=== PATIENT | male | born 1940 | race Caucasian/White ===

== ENCOUNTER → 2019-04-07 | Outpatient (CLI) | payer MEDICARE | END | disposition home or self-care (01) | LOC: SHCH 13:20 | PROVIDERS: ATTEND Internal Medicine Cardiovascular Disease | DX: R94.31 Abnormal electrocardiogram [ECG] [EKG] (principal) | CPT/HCPCS: 93306 ==

== ENCOUNTER → 2021-06-15 | Outpatient (CLI) | payer MEDICARE | END | disposition home or self-care (01) | LOC: RAH 08:33 | PROVIDERS: ATTEND Orthopaedic Surgery | DX: M16.12 Unilateral primary osteoarthritis, left hip (principal); N32.89 Other specified disorders of bladder | CPT/HCPCS: 73721 ==

== ENCOUNTER 2022-04-06 08:56 | Emergency (ER) | payer MEDICARE ==
[~2022-04-06] VITALS: Ht 182.9 cm; Wt 103.4 kg
[2022-04-06] MEDS ORDERED: KETOROLAC 15MG/ML VIAL (15MG/ML) IV ONE (09:30)
[2022-04-06] MEDS ORDERED: 0.9%NACL 1000ML 1,000 ML IV ONE (09:30)
[2022-04-06] MEDS ORDERED: FAMOTIDINE 20MG VIAL IV ONE (09:30)
[2022-04-06] MEDS ORDERED: ONDANSETRON 4MG INJ IVP ONE (09:30)
[2022-04-06] MEDS ORDERED: MORPHINE 2 MG SYG IVP ONE (09:30)
[2022-04-06 09:31] LABS: BASOPHILS % (AUTO) 0.1 % (0.0-5.0); HEMATOCRIT 40.9 % (42-54); LYMPHOCYTES % (AUTO) 7.8 % (21.0-51.0); MEAN CORPUSCULAR HEMOGLOBIN 31.8 pg (27.0-33.0); MEAN CORPUSCULAR HGB CONC 34.5 g/dL (32.0-36.0); MEAN CORPUSCULAR VOLUME 92.3 fL (79-99); MONOCYTES % (AUTO) 5.8 % (3.0-13.0); NEUTROPHILS % (AUTO) 85.5 % (40.0-77.0); PLATELET COUNT (AUTO) 198 K/uL (130-400); RED BLOOD CELL COUNT(AUTO) 4.43 MIL/uL (4.50-6.20); RED CELL DISTRIBUTION WIDTH 12.5 % (11.0-15.5); WHITE BLOOD COUNT (AUTO) 15.7 K/uL (4.8-10.8)
[2022-04-06 09:47] LABS: ALBUMIN 4.2 g/dL (3.5-5.0); CREATININE 1.4 mg/dL (0.5-1.5); POTASSIUM 4.4 mmol/L (3.5-5.1); TOTAL PROTEIN, SERUM 7.8 g/dL (6.0-8.3)
[2022-04-06] MEDS ORDERED: IOHEXOL 350 MG/ML 100ML INFUS..BTL IV ONE (09:51)
[2022-04-06] MEDS ORDERED: METRONIDAZOLE 500 MG TABLET PO SCH (11:30)
[2022-04-06] MEDS ORDERED: LACT1CAP81 PO (11:33)
[2022-04-06] MEDS ORDERED: FAMO-136 PO (11:33)
[2022-04-06] MEDS ORDERED: METR375C2 PO (11:33)
[2022-04-06 12:17] VITALS: BP 169/75
[2022-04-11] MEDS ORDERED: FAMO20TA8 PO (23:02)
[2022-04-11] MEDS ORDERED: FURO20TA4 PO (23:02)
[2022-04-11] MEDS ORDERED: LISI5TAB21 PO (23:02)
[2022-04-11] MEDS ORDERED: METO50TA18 PO (23:02)
[2022-04-11] MEDS ORDERED: ROSU20TA31 PO (23:02)
[2022-04-11] MEDS ORDERED: APIX5TAB PO (23:02)
[2022-04-11] MEDS ORDERED: METR375C7 PO (23:02)
== END 2022-04-06 12:08 | disposition home or self-care (01) ==
LOC: EDH 08:56
DX: K52.9 Noninfective gastroenteritis and colitis, unspecified (principal); I48.91 Unspecified atrial fibrillation; I11.9 Hypertensive heart disease without heart failure; Z79.01 Long term (current) use of anticoagulants
CPT/HCPCS: 99285; 74177; 96374; 96375; 96361; 82270; 84484; 80053; 83690; 85025; 36415; J3490; J7030; J2405; J1885; Q9967

== ENCOUNTER → 2022-04-25 | Outpatient (CLI) | payer MEDICARE ==
[~2022-04-25] MED LIST: APIX5TAB PO; FAMO-136 PO; FURO20TA4 PO; LACT1CAP81 PO; LISI5TAB21 PO; METO50TA18 PO; PANT40TA PO; ROSU20TA31 PO; TAMS-1 PO
== END | disposition home or self-care (01) ==
LOC: RAH 12:13
DX: M47.812 Spondylosis without myelopathy or radiculopathy, cervical region (principal); Z96.653 Presence of artificial knee joint, bilateral
CPT/HCPCS: 72040

== ENCOUNTER → 2023-12-25 | Outpatient (CLI) | payer MEDICARE ==
[~2023-12-25] MED LIST changes: -ROSU20TA31 PO; +ROSU20TA98 PO
== END | disposition home or self-care (01) ==
LOC: RAH 10:48
PROVIDERS: ATTEND Internal Medicine Cardiovascular Disease
DX: R06.02 Shortness of breath (principal); I25.10 Atherosclerotic heart disease of native coronary artery without angina pectoris; M47.815 Spondylosis without myelopathy or radiculopathy, thoracolumbar region
CPT/HCPCS: 71046

== ENCOUNTER → 2024-02-05 | Outpatient (CLI) | payer MEDICARE ==
[~2024-02-05] MED LIST changes: +IOHEXOL 350 MG/ML 100ML INFUS..BTL IV ONE
--- NOTE | 2024-02-05 12:01 | HMCIMG ---
CT CARDIAC ANGIO W/CONT. CCTA HISTORY: Edema COMPARISON: None TECHNIQUE: Multiple sequential axial images of the chest were obtained along with the CT angiogram of the chest study. Patient was given 100 cc of Omnipaque through intravenous route. FINDINGS: There is no evidence of pulmonary nodule or parenchymal disease. No pleural effusion or pericardial effusion is seen. There is no evidence of pneumothorax. There are normal size mediastinal and hilar lymph nodes. The heart is borderline enlarged. Degenerative changes of the thoracolumbar spine are present. IMPRESSION: 1. No evidence of pulmonary nodule or effusion is seen. Please see CT angiogram report of coronary arteries.
--- NOTE | 2024-02-10 10:41 | CARDIOLOGY ---
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 A dedicated, limited window, coronary imaging protocol was used, with single breath-hold, retrospective ECG gating, and automated arrhythmia rejection. 100 cc of low osmolar contrast agent: Omnipaque 350 was delivered via a 18-gauge IV catheter in the right antecubital fossa, using a power injector and followed by 60 cc of normal saline bolus as a chaser. Collimated images were reformatted at 0.5 mm intervals, and sent to an offline independent workstation for interpretation, using 3D anatomic reconstructions: Curved multiplanar reconstructions, maximum intensity projections, and multiplanar imaging. No metoprolol was administered prior to scanning due to low baseline heart rate. No SL nitroglycerin was given. CORONARY ARTERY DESCRIPTIONS: The coronary arteries arise in normal position. Left main coronary artery: Normal caliber vessel that trifurcates into the LAD, ramus and LCx. There is mixed calcified and noncalcified plaque in the proximal left main with 50% stenosis. There is mixed calcified and noncalcified plaque in the mid to distal left main with 30% stenosis. Due to calcium blooming, luminal stenosis may be overestimated. Left anterior descending coronary artery: Normal caliber vessel and gives rise to diagonal and septal branches. There is mixed calcified and noncalcified plaque in the proximal LAD with 30-40% stenosis. There is mixed calcified and noncalcified plaque in the mid LAD with 30-40% stenosis. Ramus intermedius artery: Small caliber (2 mm), no stenosis. Left circumflex coronary artery: Normal caliber, nondominant and gives rise to a large OM branch. There is mixed calcified and noncalcified plaque in the proximal LCx with 20-30% stenosis. Right coronary artery: Large, dominant vessel giving rise to the PL and PDA branches. There is mixed calcified and noncalcified plaque in the ostial RCA with 40-50% stenosis. There is mixed calcified and noncalcified plaque in the distal RCA with 20-30% stenosis. CAD-RADs: 4B, severe left main stenosis. Recommend left heart catheterization. Thoracic Aorta: Normal diameter. Karma Berkowitz MD Cardiovascular Disease [facility] KARMA BERKOWITZ MD Feb 10, 2024 10:41
== END | disposition home or self-care (01) ==
LOC: RAH 07:14
PROVIDERS: ATTEND Internal Medicine Cardiovascular Disease
DX: I25.10 Atherosclerotic heart disease of native coronary artery without angina pectoris (principal); M47.815 Spondylosis without myelopathy or radiculopathy, thoracolumbar region; R06.00 Dyspnea, unspecified; R60.9 Edema, unspecified
CPT/HCPCS: 75574; Q9967

== ENCOUNTER → 2024-04-30 | Outpatient (CLI) | payer MEDICARE ==
[~2024-04-30] MED LIST changes: +ASPI-1443 PO; +CHOL-34 PO; +EZET10TA48 PO; -FAMO-136 PO; -IOHEXOL 350 MG/ML 100ML INFUS..BTL IV ONE; -LACT1CAP81 PO; -LISI5TAB21 PO; +NITR0.4T50 SL; -PANT40TA PO; -TAMS-1 PO
[2024-04-30 12:26] LABS: CREATININE 1.3 mg/dL (0.5-1.3); MAGNESIUM 1.9 mg/dL (1.80-2.40); POTASSIUM 4.3 mmol/L (3.5-5.1)
== END | disposition home or self-care (01) ==
LOC: LAB 08:51
PROVIDERS: ATTEND Internal Medicine Cardiovascular Disease
DX: I50.32 Chronic diastolic (congestive) heart failure (principal)
CPT/HCPCS: 36415; 80048; 83735; 83880

== ENCOUNTER → 2025-01-14 | Outpatient (CLI) | payer MEDICARE ==
[~2025-01-14] MED LIST changes: -EZET10TA48 PO; +EZET10TA80 PO
--- NOTE | 2025-01-14 21:29 | HMCIMG ---
EXAM: XR Pelvis and Bilateral Hip, AP, lateral and frog lateral Views. CLINICAL HISTORY: Hip pain COMPARISON: None provided. FINDINGS: BONES: No acute fracture or focal osseous lesion. JOINTS: Bilateral asymmetric hip joint space narrowing with marginal osteophytes and subchondral sclerosis noted. No dislocation. SOFT TISSUES: The soft tissues are unremarkable. 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 /[place]
--- NOTE | 2025-01-23 07:58 | HMCIMG ---
EXAM: CR right Hand, 3 View. CLINICAL HISTORY: RIGHT HAND PAIN COMPARISON: None provided. FINDINGS: BONES: No acute osseous pathology evident. JOINTS: No evidence of dislocation. Severe thumb basal joint osteoarthritis. Mild to moderate interphalangeal joint osteoarthritis. SOFT TISSUES: The soft tissues appear within normal limits. No radiopaque foreign body is seen. IMPRESSION: 1. No acute osseous injury. 2. Severe thumb basal joint osteoarthritis. /[place]
== END | disposition home or self-care (01) ==
LOC: RAH 09:42
DX: M19.041 Primary osteoarthritis, right hand (principal); M16.0 Bilateral primary osteoarthritis of hip; M25.752 Osteophyte, left hip; M25.751 Osteophyte, right hip; M79.641 Pain in right hand; M25.551 Pain in right hip; M25.552 Pain in left hip
CPT/HCPCS: 73130; 73521